=== PATIENT | female | born 1970 | race Caucasian/White ===

== ENCOUNTER → 2018-10-08 | Outpatient (CLI) | payer OTHER ==
--- NOTE | 2018-10-14 09:48 | MM ---
Reason for exam: screening (asymptomatic). Last mammogram was performed 2 years and 4 months ago. History: Patient is nulliparous. Stereotactic core biopsy of the left breast, July 2015. Physical Findings: A clinical breast exam by your physician is recommended on an annual basis and results should be correlated with mammographic findings. MG 3D Screening Mammo W/Cad Bilateral CC and MLO view(s) were taken. Prior study comparison: June 11, 2016, bilateral MG diagnostic mammo w CAD [facility]. November 12, 2009, right breast mammogram dig work up. The breast tissue is heterogeneously dense. This may lower the sensitivity of mammography. Asymmetric breast tissue in the left MLO posterior view, stable. There is no discrete abnormality. ASSESSMENT: Negative, BI-RAD 1 RECOMMENDATION: Routine screening mammogram of both breasts in 1 year.
== END ==
LOC: RADMAMWWP 15:10
PROVIDERS: ATTEND Obstetrics & Gynecology
DX: Z12.31 Encounter for screening mammogram for malignant neoplasm of breast (principal)
CPT/HCPCS: 77063; 77067